=== PATIENT | female | born 2005 | race Caucasian/White ===

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

== ENCOUNTER 2025-02-26 17:05 | Emergency (ER) | payer OTHER, SELFPAY ==
--- NOTE | 2025-02-26 17:06 | ED.HEATRA ---
HPI - Head Injury General Chief complaint: Head Injury Stated complaint: HEAD INJURY/DIZZY/HEADACHE Time Seen by Provider: 02/26/25 17:06 Source: patient Mode of arrival: ambulatory Limitations: no limitations History of Present Illness HPI Narrative: Rose is a 19 year old female patient presenting to the clinic today with c/o headache, nausea, and dizziness x5 days. She reports she fell while roller blading and hit her head on Monday. Denies any visual changes. States that she fell as though she blacked out when she fell. States the dizziness fluctuates that times. Has been taking ibuprofen for the headache. Rates pain 4/10 currently. Related Data Home Medications ?Medication ?Instructions ?Recorded ?Confirmed ?Last Taken ?Type L norgest/E estradiol-E estrad 1 tablet PO DAILY 01/06/20 12/06/24 Unknown History 0.15 mg-30 mcg (84)/10 mcg(7) tabs,3mos risperidone 1 mg tablet 1 mg PO DAILY 05/25/24 12/06/24 Unknown History lamotrigine 25 mg tablet 50 mg PO DAILY 10/21/24 12/06/24 Unknown History sertraline 100 mg tablet 150 mg PO DIRECTED 10/21/24 12/06/24 Unknown History Allergies Allergy/AdvReac Type Severity Reaction Status Date / Time cat dander Allergy Mild NASAL AND Verified 02/26/25 17:11 EYES SWELL bee venom protein (honey Allergy Swelling Verified 02/26/25 17:11 bee) (bees) bupropion (From Wellbutrin) Allergy Unknown Verified 02/26/25 17:11 Rabbit Allergy Dry Eye Verified 02/26/25 17:11 Review of Systems Review of Systems: Pertinent positives per HPI. Patient denies any fever, chills, rash, visual changes, cough, runny nose, sore throat, shortness of breath, chest pain, palpitations, vomiting, diarrhea, constipation, abdominal pain, or any urinary issues. [facility] Past Medical History Medical History Allergies ADHD Diarrhea Nausea and vomiting Coughing Wheezing Chest tightness SOB (shortness of breath) Wears glasses Weight gain Environmental allergies Anxiety Depression Surgical History Surgical History History of eye surgery History of tonsillectomy Family History Family History Mother Depression Grandparent Diabetes mellitus Heart disease Cancer Ovarian cancer Other Hypertension Social History Social History Smoking status: Never smoker Alcohol intake: never Substance use: never Living arrangements: with family Occupation/Education: student Gender identity (if verbalized by the patient): Female Comments At the time of my signature, I reviewed and agree with the nursing past medical, surgical, social, and family history. There is no relevant family history pertinent to the patient complaint. Exam Narrative: General: Well-developed, well nourished, in no apparent distress Head: Normocephalic, atraumatic Eyes: Pupils equally round and reactive to light bilaterally, EOM intact, sclera and conjunctive clear, no discharge, lids normal Ears: TMs intact and clear, ear canals clear, no drainage, grossly hearing normal. Nose: Nares patent, no discharge, no inflammation, no sinus tenderness. Mouth: Oropharynx without lesions or masses, good dentition, MMM. Tongue midline, even rise and fall of uvula Neck: Supple, trachea midline, no enlargement of anterior or posterior cervical nodes, no thyroid masses or goiter palpable. Cardio: Regular rate and rhythm, s1 and s2 normal, no murmur appreciated. Resp: Clear to auscultation bilaterally anteriorly and posteriorly, no rhonchi, rales, wheezing or rubs Musculoskeletal: No deformity, non-tender to palpation, grossly normal range of motion, muscle strength strong and equal, peripheral pulse strong, no edema, no cyanosis, normal gait and station Neuro: Alert and oriented x4 with normal speech, no focal deficits, cranial nerves I through XII intact, muscle strength 5 out of 5, sensation intact bilaterally, negative Romberg test Course Course Emergency Course: Portions of this record may have been created with voice recognition software. Level of Care: Express Care Visit Vital Signs Vital signs: Vital signs reviewed MDM - Head Injury MDM Narrative Medical decision making narrative: At the time of visit patient is resting comfortably on the exam table. Patient appears to be nontoxic. Plan: Patient reporting headache, nausea, and dizziness. I suspect patient has a close head injury/concussion. Neuro check was normal in the clinic today. Closed head injury instructions were given to the patient. School note was given. Supportive measures were discussed with the patient and they voiced understanding discharge instructions and agrees to treatment plan. Return precautions reviewed Differential Diagnosis Differential diagnosis: Likely concussion without loss of consciousness, epidural hematoma, closed head injury, subarachnoid hematoma, postconcussion syndrome, subdural hematoma and concussion with loss of consciousness Discharge Plan Discharge Clinical Impression: Closed head injury Qualifiers: Encounter type: initial encounter Qualified Code(s): S09.90XA - Unspecified injury of head, initial encounter Patient Disposition: Home Condition: Stable Instructions: Antibiotic Form, Concussion (ED), Head Injury (ED) Additional Instructions: May take Tylenol and naproxen Tylenol as needed for headache. Increase fluids and stay well hydrated. Avoid taking any sedative medications such as muscle relaxers, benadryl, benzos, or narcotic pain medication. Watch for red flag symptoms such as confusion, lethargy, nausea/vomiting, worsening of headache, visual changes, increase in dizziness, or any stroke-like symptoms. If these symptoms develop go to the Emergency Room immediately. Reduce stimuli- lights, computers, videogames, smart phones, tv, and noise over the next 2 days. Increase stimuli gradually. If headache worsens with stimuli reduce stimuli to tolerable level. Follow up with your PCP in 5- 7 days if symptoms persist as post-concussion syndrome treatment may need to be initiated. Patient Language: Citizen Of [place] Prescriptions: New naproxen 500 mg tablet 500 mg PO BID PRN (Reason: pain) 7 Days Qty: 14 0RF No Action L norgest/e.estradiol-e.estrad 0.15 mg-30 mcg (84)/10 mcg (7) tablets,dose pack,3 month 1 tablet PO DAILY risperidone 1 mg tablet 1 mg PO DAILY (DME) Aerochamber MV Spacer See Rx Instructions .Route Qty: 1 0RF Rx Instructions: As directed sertraline 100 mg tablet 150 mg PO DIRECTED lamotrigine 25 mg tablet 50 mg PO DAILY Follow-up/Referrals: UNKNOWN,DOCTOR [Non-Staff] - Stand Alone Forms: Work/School Release IP Time of Disposition: 17:24 Quality NIHSS Nursing Documentation ED NIHSS nursing documentation: reviewed/agree
[2025-02-26 17:13] VITALS: BP 133/84; PULSE 117; RESP 16; TEMP 36.9; O2SAT 99
== END 2025-02-26 17:27 | disposition home or self-care (01) ==
PROVIDERS: Emergency Provider Nurse Practitioner Family; PCP Nurse Practitioner Adult Health
DX: S09.90XA Unspecified injury of head, initial encounter (principal); V00.111A Fall from in-line roller-skates, initial encounter; Y93.51 Activity, roller skating (inline) and skateboarding; F41.9 Anxiety disorder, unspecified; F32.A Depression, unspecified
CPT/HCPCS: 99213; G0463

== ENCOUNTER 2025-06-04 16:08 | Emergency (ER) | payer OTHER, SELFPAY ==
--- NOTE | 2025-06-04 16:13 | ED_ITS ---
HPI - General Adult General Chief complaint: Unspecified Stated complaint: BLOOD IN STOOL Time Seen by Provider: 06/04/25 16:15 Source: patient and RN notes reviewed Mode of arrival: ambulatory Limitations: no limitations History of Present Illness HPI narrative: 19-year-old female presents Express Care complaining of blood in her stool for approximately 8 days. Patient also reports generalized abdominal pain. Patient reports bright red blood after each bowel movement. Patient denies any history of hemorrhoids. Patient also reports dizziness. Patient denies taking any blood thinners or excessive NSAID use. She denies any black tarry stools, vomiting blood, any fevers, body aches, chills, change in her stools, loose stools, nausea, vomiting,. Related Data Home Medications ?Medication ?Instructions ?Recorded ?Confirmed ?Last Taken ?Type L norgest/E estradiol-E estrad 1 tablet PO DAILY 01/06/20 04/23/25 Unknown History 0.15 mg-30 mcg (84)/10 mcg(7) tabs,3mos risperidone 1 mg tablet 1 mg PO DAILY 05/25/24 04/23/25 Unknown History lamotrigine 25 mg tablet 50 mg PO DAILY 10/21/24 04/23/25 Unknown History sertraline 100 mg tablet 150 mg PO DIRECTED 10/21/24 04/23/25 Unknown History cetirizine 5 mg tablet 5 mg PO DAILY PRN 04/23/25 04/23/25 Unknown History Allergies Allergy/AdvReac Type Severity Reaction Status Date / Time cat dander Allergy Mild NASAL AND Verified 04/23/25 15:44 EYES SWELL bee venom protein (honey Allergy Swelling Verified 04/23/25 15:44 bee) (bees) bupropion (From Wellbutrin) Allergy Unknown Verified 04/23/25 15:44 Rabbit Allergy Dry Eye Verified 04/23/25 15:44 Review of Systems Review of Systems: CONSTITUTIONAL: Denies fever, chills, or sweats. EYES: Denies visual changes, redness, or discharge. ENT: Denies rhinorrhea, congestion, sore throat, or otalgia. CARDIOVASCULAR: Denies chest pain, palpitations, lightheadedness or edema. Positive for dizziness. RESPIRATORY: Denies cough or dyspnea. GASTROINTESTINAL: Denies nausea, vomiting, vomiting blood, black tarry stools or diarrhea. Positive for bloody stools and abdominal pain GENITOURINARY: Denies dysuria or hematuria. SKIN: Denies rash or itching. MUSCULOSKELETAL: Denies back pain, joint pain, or myalgia. NEUROLOGIC: Denies headache, numbness, or weakness. PSYCHIATRIC: Denies anxiety or depression. All other systems reviewed are negative, except as documented in HPI. [facility] Past Medical History Medical History Allergies ADHD Diarrhea Nausea and vomiting Coughing Wheezing Chest tightness SOB (shortness of breath) Wears glasses Weight gain Environmental allergies Anxiety Depression Surgical History Surgical History History of eye surgery History of tonsillectomy Family History Family History Mother Depression Grandparent Diabetes mellitus Heart disease Cancer Ovarian cancer Other Hypertension Social History Social History Smoking status: Never smoker Alcohol intake: never Substance use: never Living arrangements: with family Occupation/Education: student Gender identity (if verbalized by the patient): Female Comments At the time of my signature, I reviewed and agree with the nursing past medical, surgical, social, and family history. There is no relevant family history pertinent to the patient complaint. Exam Narrative: GENERAL: This is a well-nourished, well-developed adult, in no apparent distress. They are non ill-appearing, nontoxic appearing. HEAD: normocephalic, atraumatic. EYES: Sclera clear/white. Conjunctiva normal. Vision is grossly intact. Extraocular movements intact EARS: External ears normal, Hearing grossly intact. NOSE: External nose normal THROAT: Mucous membranes moist, NECK: Neck supple, CARDIOVASCULAR: Regular rate and rhythm without murmurs, gallops, or rubs. RESPIRATORY: Clear to auscultation. Breath sounds equal bilaterally. No wheezes, rales, or rhonchi. GASTROINTESTINAL: Abdomen round and distended, tenderness throughout,. Bowel sounds are active. No hepato-splenomegaly, or palpable masses. No guarding or rigidity. SKIN: warm, Dry, intact with no suspicious lesions or rash, good texture and turgor. NEURO: awake, alert, and oriented to person, place and time. There were no obvious focal neurologic abnormalities. EXTREMITIES: No joint tenderness, effusion, or edema noted. BACK: Nontender without deformity. Course Course Emergency Course: Portions of this record may have been created with voice recognition software Level of Care: Express Care Visit Vital Signs Vital signs: Vital Signs Temperature 98 F 06/04/25 16:16 Pulse Rate 103 H 06/04/25 16:16 Respiratory Rate 16 06/04/25 16:16 Blood Pressure 131/81 06/04/25 16:16 Pulse Oximetry 100 06/04/25 16:16 Temperature 98 F 06/04/25 16:16 Pulse Rate 103 H 06/04/25 16:16 Respiratory Rate 16 06/04/25 16:16 Blood Pressure 131/81 06/04/25 16:16 Pulse Oximetry 100 06/04/25 16:16 Reviewed Transfer Transfered to: [place] Transportation: Other (Private vehicle) Transfer rationale: Patient requiring Higher level care, possible GI bleed, abdominal pain Accepting physician: Dr. Ramos Medical Decision Making MDM Narrative Medical decision making narrative: Given patient's symptoms, it is recommend the patient seek a higher level care and proceed immediately to the emergency department. Patient is agreeable to go to [place] [facility]. [facility] [place] [facility] and spoke to Dr. Ramos who was wear this patient except the patient transfer. Patient states their grandmother will take her via private vehicle. Patient advised to remain NPO and proceed immediately to the ER. Differential Diagnosis Differential Diagnosis: GI bleed, colitis, hemorrhoids, constipation, Vital Signs Vital Signs: Vital Signs Temperature 98 F 06/04/25 16:16 Pulse Rate 103 H 06/04/25 16:16 Respiratory Rate 06/04/25 16:16 Blood Pressure 131/81 06/04/25 16:16 Pulse Oximetry 100 06/04/25 16:16 Temperature 98 F 06/04/25 16:16 Pulse Rate 103 H 06/04/25 16:16 Respiratory Rate 06/04/25 16:16 Blood Pressure 131/81 06/04/25 16:16 Pulse Oximetry 100 06/04/25 16:16 Critical Care Time Critical Care Time Critical Care Time: No Discharge Plan Discharge Clinical Impression: Bloody stool Abdominal pain Qualifiers: Abdominal location: generalized Qualified Code(s): R10.84 - Generalized abdominal pain Patient Disposition: Acute Care Hospital Condition: Stable Patient Language: Vietnamese Prescriptions: No Action L norgest/e.estradiol-e.estrad 0.15 mg-30 mcg (84)/10 mcg (7) tablets,dose pack,3 month 1 tablet PO DAILY risperidone 1 mg tablet 1 mg PO DAILY cetirizine 5 mg tablet 5 mg PO DAILY PRN sertraline 100 mg tablet 150 mg PO DIRECTED lamotrigine 25 mg tablet 50 mg PO DAILY Follow-up/Referrals: Serenity Smith APRN [Primary Care Provider] - Time of Disposition: 16:30
[2025-06-04 16:16] VITALS: BP 131/81; PULSE 103; RESP 16; TEMP 36.6; O2SAT 100
== END 2025-06-04 16:34 | disposition short-term general hospital (02) ==
PROVIDERS: PCP Nurse Practitioner Adult Health
DX: K92.1 Melena (principal); R10.84 Generalized abdominal pain; F41.9 Anxiety disorder, unspecified; F32.A Depression, unspecified
CPT/HCPCS: 99212; G0463

== ENCOUNTER 2025-06-04 16:58 | Emergency (ER) | payer OTHER, SELFPAY ==
--- NOTE | ~2025-06-04 | CT_ITS ---
EXAMINATION: CTA abdomen pelvis DATE: 06/04/2025 18:22 INDICATION: gi bleed TECHNIQUE: Computed tomography (CT) of the abdomen and pelvis was performed without and with 100 mL O mnipaque-350 intravenous contrast in the arterial and portal venous phases. Automated exposure contro l and iterative reconstruction technique were employed. The dose-length product was 3940.35 mGy-cm. COMPARISON: None. FINDINGS: Lower thorax: Unremarkable Liver: Enlarged. Biliary/Gallbladder: Gallbladder is normal. No bile duct dilation. Pancreas: No mass or duct dilation. Spleen: Normal. Adrenals:No mass. Kidneys: No suspicious mass, obstructing stone, or hydronephrosis. GI tract: No small or large bowel dilation. Normal appendix. Mesentery/Peritoneum: No ascites, mass, or free air. Retroperitoneum: No mass. Pelvis: Pelvic organs are within normal limits. Soft Tissues: Small uncomplicated fat-containing umbilical hernia. Bones: No acute osseous finding. IMPRESSION: Hepatomegaly. Otherwise unremarkable CTA abdomen and pelvis findings. Reviewed, dictated and finalized at location K.
--- OUTSIDE RECORDS SUMMARY | 2025-06-04 17:00 | XMS_ITS | Clinical Summary ---
Author Organization [facility] [employer] Address [address] [place] [address] Care Team Providers Care Fireworks Maker Name Role Phone Prakash Alvarado MD Primary Care Provider [phone] Lawson Arredondo MD Unavailable [phone] Prakash Alvarado MD Unavailable Prakash Alvarado MD Unavailable Source Comments [facility],non-owned Affiliates and Associated Physician Practices is amultiple site organization consisting of ambulatory clinics and hospital sitesin [place], [place], [place] and [place]. This disclosure is being madepursuant to the Care Everywhere program and may not contain all information available regarding this patient. Last updated 18.[facility] Allergies Active Allergy Reactions Criticality Noted Date Comments Epinephrine-Chlorpheniramine Anaphylaxis High 2020 Medications * This document contains information received from the source organization and may not represent a complete record from that organization. * Be aware that medications may not be up to date on this document. Alwaysverify current medications with the patient. cetirizine (ZYRTEC) 5 MG tablet Take 5 mg by mouth once daily as needed for Allergies Active venlafaxine XR 24hr (EFFEXOR XR) 37.5 MG capsuleIndicati ons:Major Depressive Disorder Take 1 (one) capsule by mouth daily with breakfast Reasons: Major Depressive Disorder 30 capsule 1 1 Active ARIPiprazole (ABILIFY) 5 MG tabletIndicatio ns:Major Depressive Disorder Take 1 (one) tablet by mouth at bedtime Reasons: Major Depressive Disorder 30 tablet 1 1 Active Active Problems Problem Noted Date Diagnosed Date Depression 12/04/2020 Ingestion of unknown medication 12/03/2020 Assessment & Plan (12/04/2020 11:19 AM CIGARETTE MAKER): Assessment: Rose is a 15yo F with history of depression and prior suicidal attempt presenting with intentional overdose, denies SI. Comprehensive UDS positive for methylphenidate. OSH records show UDS, tylenol, salicylate, alcohol negative. Grandmother is unable to name medications at home, but reports pt told her allergy pills were taken. EKG shows prolonged QTc of 475 with HR 107. OSH records show QTc of 364, likely shortened due to elevated HR of 174. Pt A&Ox3, VSS, repeat EKG with QTc of 457. Pt is medically cleared at this time. Plan: - Toxicology consult - SLIV - Regular diet - CR monitoring, pulse oximetry - Neuro checks q4 - Suicide precautions, 1:1 sitter - Avoid QT prolonging medications - Central intake consult, patient is medically cleared Assessment & Plan (12/03/2020 11:21 AM CIGARETTE MAKER): Assessment: Rose is a 15yo F with history of depression and prior suicidal attempt presenting with intentional overdose, denies SI. Comprehensive UDS positive for methylphenidate. OSH records show UDS, tylenol, salicylate, alcohol negative. Grandmother is unable to name medications at home, but reports pt told her allergy pills were taken. EKG shows prolonged QTc of 475 with HR 107. OSH records show QTc of 364, likely shortened due to elevated HR of 174. Pt appears to be clinically improving, A&Ox3, tachycardia improved to 106-117 this AM. Plan: - Toxicology consult - Serial EKGs to monitor QT interval - repeat CMP, TSH, T4 - D5 NS with KCl 20 mEq at 120 ml/hr - Regular diet - CR monitoring, pulse oximetry - Neuro checks q4 - Suicide precautions, 1:1 sitter - Avoid QT prolonging medications - Will need Central Intake consult for psychiatric evaluation once medically cleared Assessment & Plan (12/03/2020 1:11 AM CIGARETTE MAKER): Assessment: Rose is a 15yo F with history of depression and prior suicidal attempt presenting with intentional overdose. Plan: - Admit to general pediatrics, TCU status - Toxicology consult - Serial EKGs to monitor QT interval - Maintenance IV fluids - Clear liquid diet, advance as tolerated - CR monitoring, pulse oximetry - Neuro checks q4 - Suicide precautions, 1:1 sitter - Follow results of comprehensive drug screen - Avoid QT prolonging medications - Will need Central Intake consult for psychiatric evaluation once medically cleared Social History Tobacco Use Types Packs/Day Years Used Date Smoking Tobacco: Never Smokeless Tobacco: Never Tobacco Cessation:Counseling Given: No Alcohol Use Standard Drinks/Week Comments Never 0 (1 standard drink = 0.6 oz pur e alcohol) AUDIT-C Answer Date Recorded Q1: How often do you have a drink containing alc ohol? Never 12/02/2020 Average Number of Drinks Not on file 021 Frequency of Binge Drinking Not on file 11/07 Comments No Sex and Gender Information Value Date Recorded Sex Assigned at Not on file Legal Sex Female 8:09 AM CDT Gender Identity Not on file Sexual Orientation Not on file Last Filed Vital Signs Vital Sign Reading Time Taken Comments Blood Pressure 122/68 12/10/2020 9:07 AM CIGARETTE MAKER Pulse 96 12/10/2020 9:07 AM CIGARETTE MAKER Temperature 36.8 C (98.2 F) 12/10/2020 9:07 AM CIGARETTE MAKER Respiratory Rate 17 12/10/2020 9:07 AM CIGARETTE MAKER Oxygen Saturation 99% 12/10/2020 9:07 AM CIGARETTE MAKER Inhaled Oxygen Concentration - - Weight 78.9 kg (174 lb) 12/04/2020 10:06 PM CIGARETTE MAKER Height 152.4 cm (5') 12/04/2020 10:06 PM CIGARETTE MAKER Body Mass Index 33.98 12/04/2020 10:06 PM CIGARETTE MAKER Body Mass Index Percentile 98.28% 12/04/2020 10: 06 PM CIGARETTE MAKER Growth Chart: [facility] (Girls, 2- 20 Years) Plan of Treatment Health Maintenance Due Date Last Done Comments HIV SCREENING 2020 HPV VACCINE (1 - 3-dose series) 2020 CHLAMYDIA/GONORRHEA SCREENING 2021 MENINGOCOCCAL (Group B) VACC INE SHARED DECISION-MAKING (1 of 2 - Standard) 2021 HEPATITIS C SCREENING 11/09/2023 COVID-19 VACCINE (2023-2 5 season) 2024 DEPRESSION SCREENING 11/06/2024 DTAP/TDAP/TD VACCINES (1 - Tdap) 2024 HEPATITIS B VACCINE (1 of 3 - 19+ 3-dose series) 2024 INFLUENZA VACCINE (#1) 2025 ZOSTER VACCINE (1 of 2) 2055 HIB VACCINE Aged Out No longer eligi ble based on patient's age to complete this topic MENINGOCOCCAL GROUPS A/C/Y/W VACCINE Aged Out No longer eligible b ased on patient's age to complete this topic PNEUMOCOCCAL VACCINE Aged Out No long er eligible based on patient's age to complete this topic Insurance * Guarantor: LEORA COTA Account Type Relation to Patient Date of Phone Billing Address Personal/Family Grandmother [address] [phone] [facility] MEDICAID - OUT OF [facility] Member Subscriber Plan / Payer (Ef fective for All Dates) Name:OskarMisa rhodesa N Relation to Subscriber:Self Name:LINDSEY HARDYDIA Payer ID:[id number] (NAIC) Group ID:Not on file Type:Medicaid Managed Care Address: ATTN CLAIMS DEPARTMENT [address] [facility] Advance Directives * Full Code (Latest Code Status on File) Date Activated Date Inactivated Comments 12/05/2020 12:25 AM 12/10/2020 7:41 PM * Full Code Date Activated Date Inactivated Comments 12/03/2020 2:09 AM 12/04/2020 9:53 PM Care Teams Fireworks Maker Relationship Specialty Start Date End Date Prakash Alvarado MD [address] [place] [address] PCP - General 07/30/20 Lawson Arredondo MD [address] [place] [phone] 07/29/20 Prakash Alvarado MD [address] [place] [address] Pediatrics 07/30/20 Prakash Alvarado MD [facility] [place] [address] 07/30/20
--- NOTE | 2025-06-04 17:15 | ED_ITS ---
HPI - GI Bleed General Chief complaint: GI Bleed Stated complaint: blood in stool Time Seen by Provider: 06/04/25 17:02 Source: patient Mode of arrival: ambulatory Limitations: no limitations History of Present Illness HPI Narrative: Patient is a 19-year-old female who presents the ED with report of rectal bleeding. Patient reports she has had intermittent bright red rectal bleeding for the past 1 week. States her stools have been very hard and firm and painful to pass. She has noticed some blood mixed in with the stool and in the toilet/with wiping afterwards. She has had history of similar episodes in the past, which have resolved on their own. Denies known history of hemorrhoids. She reports intermittent pain throughout her upper abdomen. Denies nausea, vomiting. Denies fevers. Related Data Home Medications ?Medication ?Instructions ?Recorded ?Confirmed ?Last Taken ?Type L norgest/E estradiol-E estrad 1 tablet PO DAILY 01/06/20 04/23/25 Unknown History 0.15 mg-30 mcg (84)/10 mcg(7) tabs,3mos risperidone 1 mg tablet 1 mg PO DAILY 05/25/24 04/23/25 Unknown History lamotrigine 25 mg tablet 50 mg PO DAILY 10/21/24 04/23/25 Unknown History sertraline 100 mg tablet 150 mg PO DIRECTED 10/21/24 04/23/25 Unknown History cetirizine 5 mg tablet 5 mg PO DAILY PRN 04/23/25 04/23/25 Unknown History Allergies Allergy/AdvReac Type Severity Reaction Status Date / Time cat dander Allergy Mild NASAL AND Verified 04/23/25 15:44 EYES SWELL bee venom protein (honey Allergy Swelling Verified 04/23/25 15:44 bee) (bees) bupropion (From Wellbutrin) Allergy Unknown Verified 04/23/25 15:44 Rabbit Allergy Dry Eye Verified 04/23/25 15:44 Review of Systems 2 Review of Systems: All systems reviewed & are unremarkable except as noted in HPI. All systems reviewed & are unremarkable except as noted in HPI and below PMFSH Past Medical History Medical History Allergies ADHD Diarrhea Nausea and vomiting Coughing Wheezing Chest tightness SOB (shortness of breath) Wears glasses Weight gain Environmental allergies Anxiety Depression Surgical History Surgical History History of eye surgery History of tonsillectomy Family History Family History Mother Depression Grandparent Diabetes mellitus Heart disease Cancer Ovarian cancer Other Hypertension Social History Social History Smoking status: Never smoker Alcohol intake: never Substance use: never Living arrangements: with family Occupation/Education: student Gender identity (if verbalized by the patient): Female Exam 2 Narrative: GENERAL: Well appearing, morbidly obese with BMI of 47.7, non-toxic, in no acute distress. HEAD: Normocephalic, atraumatic. RESPIRATORY: Airway patent, respirations nonlabored. Clear to auscultation bilaterally, no rales, rhonchi, wheezing. CARDIOVASCULAR: Regular rate and rhythm without murmurs, rubs, or gallops. ABDOMINAL: Soft, mild diffuse tenderness throughout upper abdomen, nondistended. Normoactive BS. RECTAL: Declined by patient. MUSCULOSKELETAL: Moves all extremities. No gross deformities. SKIN: Warm, dry, normal color. NEURO: A&O X3. Speech clear. PSYCHIATRIC: Appropriate mood and affect. Normal interaction. Course Vital Signs Vital signs: Vital Signs Temperature 98.2 F 06/04/25 17:31 Pulse Rate 96 06/04/25 17:31 Respiratory Rate 20 06/04/25 17:31 Blood Pressure 140/69 06/04/25 17:31 Pulse Oximetry 99 06/04/25 17:31 Oxygen Delivery Room Air 06/04/25 17:31 Temperature 98.2 F 06/04/25 17:31 Pulse Rate 96 06/04/25 18:23 Respiratory Rate 27 H 06/04/25 18:23 Blood Pressure 147/65 H 06/04/25 18:23 Pulse Oximetry 100 06/04/25 18:23 Oxygen Delivery Room Air 06/04/25 17:31 MDM - GI Bleed MDM Narrative Medical decision making narrative: Patient presented to ED with intermittent bright red rectal bleeding for the past 1 week. Associated with abdominal pain. Vital signs stable upon arrival. Patient in no acute distress. She does admit that the bowel movements has been painful and firm/hard to pass. Patient did decline rectal exam in the ED. Laboratory studies are unremarkable. H&H is stable. Hemoglobin 13.1. CTA of abdomen/pelvis was obtained and unremarkable. No evidence of active bleeding or GIB. No infectious etiology. Discussed likelihood of constipation, internal hemorrhoids, small fissure. Recommended patient take stool softeners, encourage plenty of hydration, high- fiber diet. Will refer to GI for further eval as needed. Given return precautions. She agrees with plan. Discharged in stable condition. Medical Records Attestation: I reviewed the patient's medical records. Lab Data Attestation: I reviewed the patient's lab results. 06/04/25 17:25 06/04/25 17:25 Labs: Lab Results 06/04/25 Range/Units 17:25 WBC 8.4 (4.5-10.0) K/mm3 RBC 4.30 (4.2-5.4) M/mm3 Hgb 13.1 (12.0-15.0) g/dL Hct 39.4 (37.0-47.0) % MCV 91.6 (80-100) fl MCH 30.5 (26-34) pg MCHC 33.2 (32-36) g/dl RDW 12.4 (11.5-14.5) % Plt Count 321 (150-375) k/mm3 MPV 9.7 (7.4-10.4) fl Immature Gran % (Auto) 0.6 H (0-0.5) % Neut % (Auto) 51.1 (45.5-73.1) % Lymph % (Auto) 34.1 (18.3-44.2) % Throckmorton % (Auto) 11.4 H (2.6-8.5) % Eos % (Auto) 2.1 (0-4.4) % Baso % (Auto) 0.7 (0.2-1.2) % Lymph # (Auto) 2.87 (0.9-3.2) K/mm3 Throckmorton # (Auto) 1.0 H (0.1-0.6) K/mm3 Eos # (Auto) 0.2 (0-0.3) K/mm3 Baso # (Auto) 0.1 (0.0-0.1) K/mm3 Abs Immat Gran (auto) 0.05 H (0.00-0.031) K/mm3 Absolute Neuts (auto) 4.3 (1.3-6.7) K/mm3 Absolute Nucleated RBC 0.000 (0.0-0.012) K/mm3 Nucleated RBC % 0.0 (0.0-0.2) % PT 13.2 (11.1-14.7) Seconds INR 1.0 Sodium 136 (134-143) mmol/L Potassium 4.0 (3.4-5.0) mmol/L Chloride 102 (98-107) mmol/L Carbon Dioxide 25 (22-30) mmol/L Anion Gap 9 (4-12) mmol/L BUN 15 D (8-21) mg/dL Creatinine 0.67 L (0.7-1.0) mg/dL Estim Creat Clear Calc 136 ml/min Estimated GFR > 60 (59 - ) Glucose 72 (65-110) mg/dL Calcium 9.7 (8.9-10.7) mg/dL Total Bilirubin 0.2 (0.2-1.3) mg/dL AST 26 (14-36) U/L ALT 28 (6-35) U/L Alkaline Phosphatase 94 (45-116) U/L Total Protein 8.0 (6.3-8.6) g/dL Albumin 4.4 (3.7-5.6) g/dL Imaging Data Attestation: I personally reviewed and interpreted this imaging study as follows: Radiologist's impression: ITS Impressions Abdomen/Pelvis CTA 06/04/25 18:30 IMPRESSION: Hepatomegaly. Otherwise unremarkable CTA abdomen and pelvis findings. Discharge Plan Discharge Clinical Impression: Bright red rectal bleeding Patient Disposition: Home Condition: Stable Instructions: Antibiotic Form, Gastrointestinal Bleeding (ED), Hemorrhoids (ED), Anal Fissure (ED) Additional Instructions: Recommend taking stool softeners to avoid hard/firm/painful stools. Continue to monitor bleeding. Follow-up closely with your primary care doctor and GI for further evaluation. Call office to make appointment. Return to the ED if you experience worsening or severe symptoms/bleeding, severe pain, unable to keep down food or drink, passing out, or any other symptoms of concern. Patient Language: Kyrgyz Prescriptions: No Action L norgest/e.estradiol-e.estrad 0.15 mg-30 mcg (84)/10 mcg (7) tablets,dose pack,3 month 1 tablet PO DAILY risperidone 1 mg tablet 1 mg PO DAILY cetirizine 5 mg tablet 5 mg PO DAILY PRN sertraline 100 mg tablet 150 mg PO DIRECTED lamotrigine 25 mg tablet 50 mg PO DAILY Follow-up/Referrals: Julian Shankar MD [Physician] - (GI) Serenity Smith APRN [Primary Care Provider] - Time of Disposition: 18:42
[2025-06-04 17:31] VITALS: BP 140/69; PULSE 96; RESP 20; TEMP 36.8; O2SAT 99
[2025-06-04 17:37] LABS: Hematocrit 39.4 % (37.0-47.0); Hemoglobin 13.1 g/dL (12.0-15.0); Immature Granulocyte Percent A 0.6 % (0-0.5); Lymphocytes Absolute Auto 2.87 K/mm3 (0.9-3.2); Mean Corpuscular HGB Conc 33.2 g/dl (32-36); Mean Corpuscular Hemoglobin 30.5 pg (26-34); Mean Corpuscular Volume 91.6 fl (80-100); Nucleated Red Blood Cells Absolute Auto 0.000 K/mm3 (0.0-0.012); Nucleated Red Blood Cells Perc 0.0 % (0.0-0.2); Platelet Count Result 321 k/mm3 (150-375); Red Blood Count 4.30 M/mm3 (4.2-5.4); White Blood Count 8.4 K/mm3 (4.5-10.0)
--- OUTSIDE RECORDS SUMMARY | 2025-06-04 17:43 | XMS_ITS | Clinical Summary ---
Author Organization [facility] [employer] Address [address] [place] [address] Care Team Providers Care Area Coordinator Name Role Phone Prakash Alvarado MD Primary Care Provider [phone] Lawson Arredondo MD Unavailable [phone] Prakash Alvarado MD Unavailable Prakash Alvarado MD Unavailable Source Comments [facility],non-owned Affiliates and Associated Physician Practices is amultiple site organization consisting of ambulatory clinics and hospital sitesin [place], [place]. This disclosure is being madepursuant to the Care Everywhere program and may not contain all information available regarding this patient. Last updated 18.[facility] Allergies Active Allergy Reactions Criticality Noted Date [...] 12/03/2020 Assessment & Plan (12/04/2020 11:19 AM SENIOR GAMEMASTER): Assessment: Rose is a 15yo F with [...] cleared Assessment & Plan (12/03/2020 11:21 AM SENIOR GAMEMASTER): Assessment: Rose is a 15yo F with [...] cleared Assessment & Plan (12/03/2020 1:11 AM SENIOR GAMEMASTER): Assessment: Rose is a 15yo F with [...] Comments Blood Pressure 122/68 12/10/2020 9:07 AM SENIOR GAMEMASTER Pulse 96 12/10/2020 9:07 AM SENIOR GAMEMASTER Temperature 36.8 C (98.2 F) 12/10/2020 9:07 AM SENIOR GAMEMASTER Respiratory Rate 17 12/10/2020 9:07 AM SENIOR GAMEMASTER Oxygen Saturation 99% 12/10/2020 9:07 AM SENIOR GAMEMASTER Inhaled Oxygen Concentration - - Weight 78.9 kg (174 lb) 12/04/2020 10:06 PM SENIOR GAMEMASTER Height 152.4 cm (5') 12/04/2020 10:06 PM SENIOR GAMEMASTER Body Mass Index 33.98 12/04/2020 10:06 PM SENIOR GAMEMASTER Body Mass Index Percentile 98.28% 12/04/2020 10: 06 PM SENIOR GAMEMASTER Growth Chart: [facility] [place]Girls, 2- 20 Years) Plan of Treatment [...] Phone Billing Address Personal/Family Grandmother [address] [phone] [facility] [place] - OUT OF [facility] Member Subscriber Plan / Payer (Ef fective for All Dates) Name:OskarMisa rhodesa N Relation to Subscriber:Self Name:LINDSEY HARDYDIA Payer ID:[id number] (NAIC) Group ID:Not on file Type:Medicaid Managed Care Address: ATTN CLAIMS DEPARTMENT [address] [facility] Advance Directives * Full Code (Latest Code Status on File) Date Activated Date Inactivated Comments 12/05/2020 12:25 AM 12/10/2020 7:41 PM * Full Code Date Activated Date Inactivated Comments 12/03/2020 2:09 AM 12/04/2020 9:53 PM Care Teams Area Coordinator Relationship Specialty Start Date End Date Prakash Alvarado MD [address] [place] [address] PCP - General 07/30/20 Lawson Arredondo MD [address] [place] [phone] 07/29/20 Prakash Alvarado MD [address] [place] [address] Pediatrics 07/30/20 Prakash Alvarado MD [facility] [place] [address] 07/30/20
[2025-06-04 17:46] LABS: INR 1.0; Prothrombin Time 13.2 Seconds (11.1-14.7)
[2025-06-04 17:58] VITALS: BP 117/68; PULSE 98; RESP 22; O2SAT 99
[2025-06-04 17:59] LABS: Alanine Aminotransferase 28 U/L (6-35); Albumin Level 4.4 g/dL (3.7-5.6); Alkaline Phosphatase 94 U/L (45-116); Anion Gap 9 mmol/L (4-12); Aspartate Amino Transferase 26 U/L (14-36); Bilirubin,Total 0.2 mg/dL (0.2-1.3); Blood Urea Nitrogen 15 mg/dL (8-21); Calcium 9.7 mg/dL (8.9-10.7); Carbon Dioxide 25 mmol/L (22-30); Chloride 102 mmol/L (98-107); Estimated CRCL calculation 136 ml/min; Estimated Glomerular Filt Rate > 60; Glucose 72 mg/dL (65-110); Potassium 4.0 mmol/L (3.4-5.0); Sodium 136 mmol/L (134-143); Total Protein 8.0 g/dL (6.3-8.6)
[2025-06-04 18:23] VITALS: BP 147/65; PULSE 96; RESP 27; O2SAT 100
[2025-06-04 18:58] VITALS: BP 129/62; PULSE 91; RESP 16; O2SAT 100
== END 2025-06-04 19:00 | disposition home or self-care (01) ==
PROVIDERS: Family Medicine; Emergency Provider Physician Assistant; PCP Nurse Practitioner Adult Health
DX: K62.5 Hemorrhage of anus and rectum (principal); F41.9 Anxiety disorder, unspecified; F32.A Depression, unspecified; F90.9 Attention-deficit hyperactivity disorder, unspecified type; Z79.899 Other long term (current) drug therapy; Z79.3 Long term (current) use of hormonal contraceptives; R16.0 Hepatomegaly, not elsewhere classified
CPT/HCPCS: 36415; 74174; 80053; 85025; 85610; 99284; Q9967

== ENCOUNTER 2025-08-28 19:29 | Emergency (ER) | payer OTHER, SELFPAY ==
[2025-08-28 19:41] VITALS: BP 131/85; PULSE 116; RESP 16; TEMP 37; O2SAT 100
[2025-08-28 19:55] LABS: EDCOVIDSCREEN Negative (Negative); EDINFLUASCREEN Negative (Negative); EDINFLUBSCREEN Negative (Negative); EDSTREPNEGPOS1 Negative (Negative)
--- NOTE | 2025-08-28 19:59 | ED.URI ---
HPI - URI/Sore Throat General Chief Complaint: Upper Respiratory Infection Stated Complaint: Sinus Infection Symptoms Time Seen by Provider: 08/28/25 19:45 Source: patient and RN notes reviewed Mode of arrival: ambulatory Limitations: no limitations History of Present Illness HPI Narrative: Bpvvfyub-qyrf-xzu female presents Express Care complaining of upper respiratory symptoms for approximately 4 days. Patient reports cough, congestion, fevers, sore throat, body aches. Patient denies any other upper respiratory symptoms, nausea vomiting, diarrhea, chest pain, difficulty breathing, chills, abdominal pain, urinary symptoms, wheezing, or any other symptoms. Patient taking [id number] cold/flu medication with some relief. Patient denies any significant past medical history. Related Data Home Medications ?Medication ?Instructions ?Recorded ?Confirmed ?Last Taken ?Type L norgest/E estradiol-E estrad 1 tablet PO DAILY 01/06/20 08/28/25 Unknown History 0.15 mg-30 mcg (84)/10 mcg(7) tabs,3mos risperidone 1 mg tablet 1 mg PO DAILY 05/25/24 08/28/25 Unknown History lamotrigine 25 mg tablet 50 mg PO DAILY 10/21/24 08/28/25 Unknown History sertraline 100 mg tablet 150 mg PO DIRECTED 10/21/24 08/28/25 Unknown History cetirizine 5 mg tablet 5 mg PO DAILY PRN unknown 04/23/25 08/28/25 Unknown History Allergies Allergy/AdvReac Type Severity Reaction Status Date / Time cat dander Allergy Mild NASAL AND Verified 08/28/25 19:37 EYES SWELL bee venom protein (honey Allergy Swelling Verified 08/28/25 19:37 bee) (bees) bupropion (From Wellbutrin) Allergy Unknown Verified 08/28/25 19:37 Rabbit Allergy Dry Eye Verified 08/28/25 19:37 Review of Systems Review of Systems: CONSTITUTIONAL: Positive for fever and body aches. Negative for chills, or sweats. EYES: Denies visual changes, redness, or discharge. ENT: Positive for congestion, sore throat. Negative for rhinorrhea or otalgia. CARDIOVASCULAR: Denies chest pain, palpitations, or edema. RESPIRATORY: Positive for cough. Negative for dyspnea or wheezing. GASTROINTESTINAL: Denies abdominal pain, nausea, vomiting, or diarrhea. GENITOURINARY: Denies dysuria or hematuria. SKIN: Denies rash or itching. MUSCULOSKELETAL: Denies back pain, joint pain, or myalgia. NEUROLOGIC: Denies headache, numbness, or weakness. PSYCHIATRIC: Denies anxiety or depression. All other systems reviewed are negative, except as documented in HPI. [facility] Past Medical History Medical History Allergies ADHD Diarrhea Nausea and vomiting Coughing Wheezing Chest tightness SOB (shortness of breath) Wears glasses Weight gain Environmental allergies Anxiety Depression Surgical History Surgical History History of eye surgery History of tonsillectomy Family History Family History Mother Depression Grandparent Diabetes mellitus Heart disease Cancer Ovarian cancer Other Hypertension Social History Social History Smoking status: Never smoker Alcohol intake: never Substance use: never Living arrangements: with family Occupation/Education: student Gender identity (if verbalized by the patient): Female Comments At the time of my signature, I reviewed and agree with the nursing past medical, surgical, social, and family history. There is no relevant family history pertinent to the patient complaint. Exam Narrative: GENERAL: This is a well-nourished, well-developed adult, in no apparent distress. They are non ill-appearing, nontoxic appearing. HEAD: normocephalic, atraumatic. EYES: Sclera clear/white. Vision is grossly intact. Conjunctiva normal bilaterally. Extraocular movements intact. EARS: External ears normal, auditory canals clear and without drainage, TMs without erythema or perforation. Hearing grossly intact. NOSE: External nose normal with no obvious nasal discharge, nasal turbinates erythematous, no rhinorrhea. THROAT: Mucous membranes moist, posterior pharynx erythematous without exudate. Uvula is midline. Postnasal drip present. NECK: Neck supple, non-tender without lymphadenopathy, masses or thyromegaly. CARDIOVASCULAR: Regular rate and rhythm without murmurs, gallops, or rubs. RESPIRATORY: Clear to auscultation. Breath sounds equal bilaterally. No wheezes, rales, or rhonchi. SKIN: warm, Dry, intact with no suspicious lesions or rash, good texture and turgor. NEURO: awake, alert, and oriented to person, place and time. There were no obvious focal neurologic abnormalities. EXTREMITIES: No joint tenderness, effusion, or edema noted. BACK: Nontender without deformity. Course Course Emergency Course: Portions of this record may have been created with voice recognition software Level of Care: Express Care Visit Vital Signs Vital signs: Vital Signs Temperature 98.6 F 08/28/25 19:41 Pulse Rate 116 H 08/28/25 19:41 Respiratory Rate 16 08/28/25 19:41 Blood Pressure 131/85 08/28/25 19:41 Pulse Oximetry 100 08/28/25 19:41 Temperature 98.6 F 08/28/25 19:41 Pulse Rate 116 H 08/28/25 19:41 Respiratory Rate 16 08/28/25 19:41 Blood Pressure 131/85 08/28/25 19:41 Pulse Oximetry 100 08/28/25 19:41 MDM - URI/Sore Throat MDM Narrative Medical decision making narrative: Rapid COVID, flu, strep were negative. Throat culture is pending. I suspect a viral upper respiratory infection. Discussed supportive therapy. Discussed physical exam findings. Advised supportive measures and signs/symptoms to go to the ER. Pt is appropriate for outpt treatment and f/u. Differential Diagnosis Differential diagnosis: Likely upper respiratory infection, sinusitis, viral infection and pharyngitis Lab Data Attestation: I reviewed the patient's lab results. Labs: Lab Results 08/28/25 Range/Units 19:35 POC Influenza A Ag Negative (Negative) POC Influenza B Ag Negative (Negative) POC SARS CoV-2 Ag Negative (Negative) POC Grp A Strep Screen Negative (Negative) Discharge Plan Discharge Clinical Impression: Upper respiratory infection Qualifiers: URI type: unspecified viral URI Qualified Code(s): J06.9 - Acute upper respiratory infection, unspecified Patient Disposition: Home Condition: Stable Instructions: Upper Respiratory Infection (ED) Additional Instructions: Your rapid COVID, flu, rapid strep swab was negative today at [facility]. You will be notified in a few days if the culture comes back positive for strep, and appropriate antibiotics will be called in for you at that time. Your symptoms are likely due to a viral illness, which is not treated with antibiotics. Viral symptoms can be present for up to 10-14 days. Take take Tylenol ibuprofen as needed for fever or pain. Follow instructions on the bottle. DayQuil and NyQuil contain Tylenol so do not take additional Tylenol if you choose to take these medications. Rest and stay hydrated. Follow up with your PCP in 3-5 days if symptoms are not improving. Go to the ER immediately if you developed chest pain, nausea, vomiting, worsening fevers, difficulty breathing or swallowing, worsening symptoms, or any serious concerns. Patient Language: Lithuanian Prescriptions: No Action L norgest/e.estradiol-e.estrad 0.15 mg-30 mcg (84)/10 mcg (7) tablets,dose pack,3 month 1 tablet PO DAILY risperidone 1 mg tablet 1 mg PO DAILY cetirizine 5 mg tablet 5 mg PO DAILY PRN (Reason: unknown) sertraline 100 mg tablet 150 mg PO DIRECTED lamotrigine 25 mg tablet 50 mg PO DAILY Follow-up/Referrals: PHYSICIAN,STOCK HANDLER [Primary Care Provider, Internal Medicine] Stand Alone Forms: Work/School Release IP Time of Disposition: 19:54
== END 2025-08-28 19:50 | disposition home or self-care (01) ==
DX: J06.9 Acute upper respiratory infection, unspecified (principal); Z20.822 Contact with and (suspected) exposure to COVID-19; F41.9 Anxiety disorder, unspecified; F32.A Depression, unspecified
CPT/HCPCS: 87081; 87426; 87804; 87880; 99213; G0463